=== PATIENT | male | born 1975 | race Caucasian/White ===

== ENCOUNTER 2018-03-27 15:09 | Emergency (ER) | payer MEDICAID ==
[~2018-03-27] VITALS: Ht 182.9 cm; Wt 94.3 kg
[2018-03-27 15:35] VITALS: BP 146/78
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
[2018-03-27] MEDS ORDERED: LIDOCAINE 2% 1000 MG/50 ML VIAL INJ ONE (16:50)
--- NOTE | 2018-03-27 17:06 | NUR ---
5 GI TO RIGHT BACK OF HEAD DONE BY DR KNOX. PT TOLERATED PROCEDURE WELL.
[2018-03-27] MEDS ORDERED: IBUPROFEN 800 MG TAB PO ONE (17:45)
--- NOTE | 2018-03-27 18:50 | NUR ---
Patient appears to be resting comfortably in bed. BP 149/82, P76, Respirations even and unlabored.WILL CONTINUE TO MONITOR. Addendum: 03/27/18 at 1900 by [email or web address] / AT THIS TIME.
--- NOTE | 2018-03-27 19:09 | NUR ---
REPORT RECEIVED FROM JULIA FERRER
--- NOTE | 2018-03-27 19:09 | NUR ---
Pt report given to BRODY FERRER. Transfer of care at this time.
[2018-03-27 19:51] VITALS: BP 139/79
== END 2018-03-27 19:53 | disposition home or self-care (01) ==
LOC: MED 15:09
DX: S01.01XA Laceration without foreign body of scalp, initial encounter (principal); W20.8XXA Other cause of strike by thrown, projected or falling object, initial encounter; Y93.89 Activity, other specified; Y92.89 Other specified places as the place of occurrence of the external cause; Y99.8 Other external cause status
CPT/HCPCS: 12004; 99283; J2001

== ENCOUNTER 2018-04-04 18:58 | Emergency (ER) | payer MEDICAID ==
[~2018-04-04] VITALS: Ht 185.4 cm; Wt 90.7 kg
[2018-04-04 19:19] VITALS: BP 141/85
--- NOTE | 2018-04-04 19:44 | NUR ---
TO ED 06 WITH STEADY GAIT.
--- NOTE | 2018-04-04 19:53 | NUR ---
PT BIB SELF FOR STAPLE REMOVAL, 5 STAPLE ON R SIDE OF HEAD, WELL APPROXIMATED. PT DENIES PAIN, NO SWELLING, NO REDNESS. ER MD TO SEE PT. DENIES MED HX
--- NOTE | 2018-04-04 20:19 | NUR ---
Dr. Rebolledo evaluating patient at bedside.
--- NOTE | 2018-04-04 20:20 | NUR ---
RICKY NDIAYE APPLIED BACITRACIN TO AREA OF STAPLE REMOVAL.
[2018-04-04] MEDS ORDERED: BACITRACIN OINT 500 UNITS/GM PKT TP ONE ×2 (20:25→20:34)
[2018-04-04 20:31] VITALS: BP 141/85
--- NOTE | 2018-04-04 20:31 | NUR ---
Patient discharged with v/s stable. Written and verbal after care instructions given and explained. Patient verbalized understanding. Ambulatory with steady gait. All questions addressed prior to discharge. Advised to follow up with PMD.
== END 2018-04-04 20:31 | disposition home or self-care (01) ==
LOC: MED 18:58
DX: S01.01XD Laceration without foreign body of scalp, subsequent encounter (principal); X58.XXXD Exposure to other specified factors, subsequent encounter
CPT/HCPCS: 99282